=== PATIENT | female | born 1960 | race Caucasian/White ===

== ENCOUNTER 2019-01-23 10:01 | Day surgery (SDC) | payer BC ==
[~2019-01-23] VITALS: Ht 152.4 cm; Wt 68.1 kg
[~2019-01-23 10:01] MED LIST: BUPIVACAINE/PF 0.5% ONE; EPINEPHRINE 1 MG/ML, 1ML ONE; MULT-658 PO
[2019-01-23 10:28] VITALS: BP 163/88
[2019-01-23] MEDS ORDERED: LACTATED RINGERS 1,000 ML IV SCH (10:33)
[2019-01-23] MEDS ORDERED: SCOPOLAMINE PATCH, 1.5MG PATCH.TD72 TD ONE (11:00)
[2019-01-23] MEDS ORDERED: ACETAMINOPHEN 500 MG TABLET PO ONE (11:00)
[2019-01-23] MEDS ORDERED: GABAPENTIN 300 MG CAPSULE PO ONE (11:00)
[2019-01-23] MEDS ORDERED: MIDAZOLAM 1 MG/ML, 2ML ONE (12:14)
[2019-01-23] MEDS ORDERED: FENTANYL PF 250 MCG/5ML ONE (12:14)
[2019-01-23] MEDS ORDERED: ROCURONIUM 10MG/ML,5ML ONE (12:28)
[2019-01-23] MEDS ORDERED: PROPOFOL 10 MG/ML, 20ML ONE (12:28)
[2019-01-23] MEDS ORDERED: CEFAZOLIN 1,000 MG ONE (12:28)
[2019-01-23] MEDS ORDERED: SUCCINYLCHOLINE 20 MG/ML, 10ML ONE (12:28)
[2019-01-23] MEDS ORDERED: DEXAMETHASONE 4 MG/ML, 1ML ONE (12:28)
[2019-01-23] MEDS ORDERED: SUGAMMADEX 200 MG/2 ML IVPush ONE (12:55)
[2019-01-23] MEDS ORDERED: ONDANSETRON 2MG/ML, 2ML ONE ×2 (12:55)
[2019-01-23] MEDS ORDERED: FENTANYL PF 100 MCG/2ML ONE (13:28)
[2019-01-23] MEDS ORDERED: OXYcodone 5 MG/5 ML ORAL.SOL UDC ONE (13:28)
== END 2019-01-23 15:15 | disposition home or self-care (01) ==
LOC: OUT 10:01
PROVIDERS: ATTEND Surgery
DX: K80.10 Calculus of gallbladder with chronic cholecystitis without obstruction (principal); I35.0 Nonrheumatic aortic (valve) stenosis; Z83.3 Family history of diabetes mellitus
CPT/HCPCS: 47562; 88304; J0171; J0330; J0690; J1100; J2250; J2405; J2704; J3010; J7120

== ENCOUNTER → 2020-08-17 | Outpatient (CLI) | payer BC ==
[~2020-08-17] MED LIST changes: -BUPIVACAINE/PF 0.5% ONE; -EPINEPHRINE 1 MG/ML, 1ML ONE
== END | disposition home or self-care (01) ==
LOC: CVU 14:33
PROVIDERS: ATTEND Family Medicine
DX: I08.8 Other rheumatic multiple valve diseases (principal)
CPT/HCPCS: 93306; 93356

== ENCOUNTER 2020-10-09 14:02 | Outpatient (CLI) | payer BC ==
[2020-10-09] MEDS ORDERED: OMNIPAQUE 350 MG/ML, 100ML BOTTLE ONE (14:15)
== END 2020-10-09 23:59 | disposition home or self-care (01) ==
LOC: CFH 14:02
PROVIDERS: ATTEND Internal Medicine Cardiovascular Disease
DX: I71.2 Thoracic aortic aneurysm, without rupture (principal); I35.8 Other nonrheumatic aortic valve disorders
CPT/HCPCS: 71275; Q9967